=== PATIENT | female | born 1995 | race Caucasian/White ===

== ENCOUNTER 2023-11-11 04:27 | Inpatient (IN) ==
[2023-11-11] MEDS: Oxytocin in LR 20,000 MILLI.UNIT/1,000 ML BAG IV SCH (03:14)
[~2023-11-11 04:27] MED LIST: Dibucaine 1% OINT 28.35 GM TUBE PR PRN; Glycerin ADULT 2.4 gm SUPP PR PRN; Witch Hazel PAD JAR TOPICAL PRN
[2023-11-11] MEDS ORDERED: Lactated Ringers 1000 ml BAG 1,000 ML IV SCH (05:00)
[2023-11-11] MEDS: ceFAZolin 1 GM in Dextrose 1 GM/50 ML BAG IVPB SCH (12:06)
[2023-11-11 12:23] LABS: ABS Lymphocytes 1.2 10^3/uL (1.0-4.8); ABS Monocytes 0.7 10^3/uL (0.0-0.9); ABS Neutrophils 5.1 10^3/uL (1.5-7.6); Eosinophil % 0.2 %; Hematocrit 21.9 % (35-45); Hemoglobin 7.5 g/dL (11.5-14.3); Lymphocyte % 17.6 %; Mean Corpuscular Hemoglobin 28.8 pg (27-33); Mean Corpuscular Hgb Conc 34.2 g/dL (31-36); Mean Corpuscular Volume 84.3 fL (80-97); Mean Platelet Volume 9.6 fL (7.5-11.2); Nucleated Red Blood Cells % 0.1 %/100WBC (0.0-0.8); Platelet Count 123 10^3/uL (150-450); Red Cell Distribution Width 15.4 % (12-17); White Blood Count 7.1 10^3/uL (3.8-11.8)
[2023-11-11 15:17] VITALS: BP 107/61
== END 2023-11-11 17:30 | disposition left against medical advice (07) | DRG 560 ==
LOC: MCHOBOUT 04:27 → MCHOB 04:30
PROVIDERS: ADMIT Obstetrics & Gynecology; ATTEND Obstetrics & Gynecology